=== PATIENT | male | born 1985 | race Caucasian/White ===

== ENCOUNTER 2020-03-06 20:26 | Emergency (ER) | payer MEDICAID, SELFPAY ==
[2020-03-06 20:27] VITALS: BP 154/98; PULSE 105; RESP 16; TEMP 36.7; O2SAT 98; BMI 29.2
--- NOTE | 2020-03-06 21:24 | ED.VIS.GEN ---
History of Present Illness Chief Complaint: Ear Problem Informant: Patient Narrative: Patient states that he is developed left ear pain. It hurts when he moves his ear and lays on it. He notes pain just anterior to the ear to touch. No fevers. No drainage. He states that he is able to hear but seems somewhat diminished. He rarely used Q-tips however he does wear ear canal hearing protection at work. Past Medical History - Allergies and Home Meds Allergies/Adverse Reactions: Allergies sulfamethoxazole [From Bactrim] Adverse Reaction (Verified 03/06/20 20:28) Nausea tramadol Adverse Reaction (Verified 03/06/20 20:28) Vomiting trimethoprim [From Bactrim] Adverse Reaction (Verified 03/06/20 20:28) Nausea Primary Care Physician: NOT,DEFINED [Primary Care Provider] - Review of Systems General: Denies: Chills, Fever, Sweats Eyes: Denies: Visual changes - bilaterally, Diplopia ENT: Reports: Left ear pain. Denies: Rhinorrhea, Sore throat Cardiovascular: Denies: Chest pain, Palpitations Respiratory: Denies: Dyspnea, Cough, Dyspnea on exertion Gastrointestinal: Denies: Abdominal pain, Nausea, Vomiting, Diarrhea, Melena, Hematochezia Genitourinary: Denies: Dysuria, Hematuria, Frequency Musculoskeletal: Denies: Back pain, Extremity Pain Skin: Denies: Rash, Wounds Neurological: Denies: Headache, Weakness, Numbness Physical Exam Vital Signs/Narrative: Vital Signs Temp Pulse Resp BP Pulse Ox 03/06/20 20:27 98.0 F 105 H 16 154/98 H 98 Inital Vital Signs reviewed: Yes General: Well nourished, Well developed, No Acute Distress Head: Normocephalic, Atraumatic Eyes: Perrl, EOMI ENT: Moist mucous membranes, No rhinorrhea, - - Patient has pain with movement of the pinna. He has swelling of the ear canal and exudate. There is no mastoid tenderness. No outward signs of erythema. The tympanic membrane on the left is visualized and appears normal Neck: Supple, Nontender Cardiovascular: Regular rate, Regular rhythm, No murmurs Respiratory: No distress, CTA bilaterally, Chest nontender Abdomen: Soft, Nontender, Nondistended, Normal bowel sounds Back: Nontender, Normal Inspection Extremities: Nontender, No edema Skin: Normal color, No rash Neurological: Alert, Oriented x3, Cranial nerves II-XII grossly intact, Normal Strength, Normal Sensation Psychological: Normal affect, Normal Mood Diagnostic/Tx/Re-eval - Medical Decision Making This appears to be a otitis externa we are going to use Ciprodex. I will give him his first dose of medicine here. Follow-up with ENT if not improved in 1 week. At this point I do not see evidence of acute mastoiditis. I can see his tympanic membrane and I do not think a wick is indicated. ED Disposition - Plan for ED Patient: Disposition: Home or Assisted Living Diagnosis: Otitis externa of left ear Instructions: ED Otitis Externa Prescriptions: Ciprofloxacin HCl/Dexameth [Ciprodex Otic Suspension] 4 drp OTIC (EAR) BID 7 Days #1 bottle Prescription Printed Referrals: Chito Salgado MD [STAFF PHYSICIAN] - 1 Week if not improving
[2020-03-06] MEDS: Neomycin/Polymyxin/Dexameth 5ML OPTH.BTL 4 DRP OTIC (21:45)
== END 2020-03-06 21:58 | disposition home or self-care (01) ==
LOC: ED 21:56
PROVIDERS: Emergency Provider Emergency Medicine
DX: H60.92 Unspecified otitis externa, left ear (principal)
CPT/HCPCS: 99282; A4216

== ENCOUNTER 2020-04-27 04:42 | Emergency (ER) | payer MEDICAID, SELFPAY ==
[2020-04-27 04:42] VITALS: BP 122/76; PULSE 107; RESP 23; TEMP 37.3; O2SAT 95; BMI 28.0
[2020-04-27 04:46] VITALS: BP 122/76; PULSE 107; RESP 23; TEMP 37.3; O2SAT 95
--- NOTE | 2020-04-27 04:52 | ED.VIS.GEN ---
History of Present Illness Chief Complaint: General Illness Informant: Patient Narrative: Stated for the last few days he has had bilateral ear pain. Started on the right and then went to the left. He has a history of frequent otitis media and externa. Last swimming was 2 weeks ago. Stated he developed a fever tonight and had 4 episodes of emesis. He took DayQuil. That got his fever back down to normal. No sick contacts. No respiratory symptoms. Current severity is mild to moderate. Past Medical History - Allergies and Home Meds Allergies/Adverse Reactions: Allergies sulfamethoxazole [From Bactrim] Adverse Reaction (Verified 03/06/20 20:28) Nausea tramadol Adverse Reaction (Verified 03/06/20 20:28) Vomiting trimethoprim [From Bactrim] Adverse Reaction (Verified 03/06/20 20:28) Nausea Primary Care Physician: Juan Carlos Beltrán MD [STAFF PHYSICIAN] - Prior records reviewed: Yes Past Medical History: - - Otitis externa Surgical History: noncontributory Lives: With Family Smoking Status: Never smoker Alcohol: None Drugs: None Review of Systems General: Reports: Fever. Denies: Chills, Sweats Eyes: Denies: Visual changes - bilaterally, Diplopia ENT: Reports: Left ear pain, Right ear pain. Denies: Rhinorrhea, Sore throat Cardiovascular: Denies: Chest pain, Palpitations Respiratory: Denies: Dyspnea, Cough, Dyspnea on exertion Gastrointestinal: Reports: Nausea, Vomiting. Denies: Abdominal pain, Diarrhea, Melena, Hematochezia Genitourinary: Denies: Dysuria, Hematuria, Frequency Musculoskeletal: Denies: Back pain, Extremity Pain Skin: Denies: Rash, Wounds Neurological: Denies: Headache, Weakness, Numbness Physical Exam Vital Signs/Narrative: Vital Signs Temp Pulse Resp BP Pulse Ox 04/27/20 04:46 99.2 F H 107 H 23 H 122/76 H 95 04/27/20 04:42 99.2 F H 107 H 23 H 122/76 H 95 General: Well nourished, Well developed, No Acute Distress Head: Normocephalic, Atraumatic Eyes: Perrl, EOMI ENT: Moist mucous membranes, No rhinorrhea, - - Right otitis externa noted. Canal swollen shut. Unable to see the TM. Left TM mildly erythemic with mild swelling to the canal Neck: Supple, Nontender Cardiovascular: Regular rate, Regular rhythm, No murmurs Respiratory: No distress, CTA bilaterally, Chest nontender Abdomen: Soft, Nontender, Nondistended, Normal bowel sounds Back: Nontender, Normal Inspection Extremities: Nontender, No edema Skin: Normal color, No rash Neurological: Alert, Oriented x3, Cranial nerves II-XII grossly intact, Normal Strength, Normal Sensation Psychological: Normal affect, Normal Mood Diagnostic/Tx/Re-eval - Medical Decision Making This time I feel the patient has an otitis medial in the left side as well as bilateral otitis externa. Will be placed on Augmentin. Given Zofran in the emergency department. Fever has broke. Will continue these medications at home and follow-up as an outpatient. I do not feel he has malignant otitis externa. There is no evidence of mastoiditis on exam ED Disposition - Plan for ED Patient: Disposition: Home or Assisted Living Diagnosis: Otitis media, Otitis externa Prescriptions: Amox/Clavulanate Tablet [Augmentin Tablet] 875 mg PO Q12H #20 tab Transmission Status: Received by [facility]/pharmacy #[id number] Ondansetron [Zofran Odt] 8 mg PO Q8H PRN PRN #20 tab PRN Reason: Nausea Transmission Status: Received by [facility] #[id number] Referrals: Juan Carlos Beltrán MD [STAFF PHYSICIAN] -
[2020-04-27] MEDS: Amox/Clavulanate 875 MG Tablet PO (05:20)
[2020-04-27] MEDS: Ondansetron ODT 4 MG Tablet 8 MG PO (05:20)
[2020-04-27 05:23] VITALS: BP 126/81; PULSE 110; RESP 16; O2SAT 95
== END 2020-04-27 05:24 | disposition home or self-care (01) ==
PROVIDERS: Emergency Provider Emergency Medicine
DX: H66.93 Otitis media, unspecified, bilateral (principal); H60.93 Unspecified otitis externa, bilateral
CPT/HCPCS: 99283